=== PATIENT | female | born 1950 | race Caucasian/White ===

== ENCOUNTER 2017-11-25 06:50 | Emergency (ER) | payer OTHER, BC ==
[2017-11-25 07:01] VITALS: BP 148/92; PULSE 81; TEMP 99.2; BMI 27.1
--- NOTE | 2017-11-25 07:23 | PDOC ---
History of Present Illness - General Chief Complaint: Bite Stated Complaint: FEVER Time Seen by Provider: 11/25/17 07:09 History Source: Patient Exam Limitations: No Limitations - History of Present Illness Initial Comments: 11/25/17 07:16 67y F hx of htn presents with complaint of fevers. Pt notes that [place]. [place] and was bit by a flying insect, there was a rash at the area on her R chest right afterwards that was a little itchy but then resolved. She also endorsed some body aches the first day but that has since resolved. The pt denies any associated n/v/d, dysuria, cough, sore throat, sneezing, cp, abd pain , back pain, other rashes, known sick contacts. Pt notes that she has been having low grade fevers to 101, 100.8 and has been taking tylenol around the clock. Pt states she went to urgent care who referred her to the ED for evauation. Past History - Past Medical History Allergies/Adverse Reactions: Allergies Allergy/AdvReac Type Severity Reaction Status Date / Time BACITRACIN OPTH Allergy Uncoded 11/25/17 06:52 Home Medications: Ambulatory Orders Amlodipine Besylate/Benazepril [Lotrel 5-10 mg Capsule] 1 each PO DAILY Spironolactone [Aldactone -] 25 mg PO DAILY 05/08/13 Metoprolol Tartrate 25 mg PO DAILY 11/25/17 Anemia: No Asthma: No Cancer: No Cardiac Disorders: No CVA: No COPD: No CHF: No Dementia: No Diabetes: No GI Disorders: No Disorders: No HTN: Yes Hypercholesterolemia: No Liver Disease: No Seizures: No Thyroid Disease: No - Surgical History Appendectomy: Yes - Immunization History Immunization Up to Date: No - Suicide/Smoking/Psychosocial Hx Smoking History: Never smoked Have you smoked in the past 12 months: No Information on smoking cessation initiated: No Hx Alcohol Use: No Drug/Substance Use Hx: No Substance Use Type: None Review of Systems - Review of Systems Able to Perform ROS?: Yes Comments:: 11/25/17 07:19 Constitutional - +Fever, body aches no reported Chills, HEENT: no reported vision changes, sore throat Respiratory: no reported cough, sob, hemoptysis Cardiac: no reported chest pain, palpitations, light headedness, leg swelling Abd/GI: no reported abd pain, nausea, vomiting, blood per rectum, melena, diarrhea : no reported dysuria, frequency, discharge Musculskelatal - no reported back pain, joint swelling skin - no reported bruising, erythema, rash neurological: no reported headache, numbness, focal weakness, tingling, ataxia, hematologic: no reported easy bruising, easy bleeding *Physical Exam - Vital Signs Last Vital Signs Temp Pulse Resp BP Pulse Ox 99.2 F 81 16 148/92 99 11/25/17 06:57 11/25/17 06:57 11/25/17 06:57 11/25/17 06:57 11/25/17 06:57 - Physical Exam Comments: 11/25/17 07:23 GENERAL: The patient is awake, alert, and fully oriented, Nontoxic - in no acute distress. HEAD: Normocephalic, atraumatic. EYES: extraocular movements intact, sclera anicteric, conjunctiva clear. ENT: Normal voice, Moist mucous membranes. NECK: Normal range of motion, supple LUNGS: Breath sounds equal, clear to auscultation bilaterally. No wheezes, no rhonchi, no rales. HEART: Regular rate and rhythm, normal S1 and S2 without murmur, rub or gallop. ABDOMEN: Soft, nontender, normoactive bowel sounds. No guarding, no rebound. . No CVA tenderness EXTREMITIES: Normal range of motion, no edema. No clubbing or cyanosis. No cords, erythema, or tenderness. NEUROLOGICAL: No facial assymetry, Normal speech, PSYCH: Normal mood, normal affect. SKIN: Warm, Dry, normal turgor, no rashes noted ED Treatment Course - LABORATORY CBC & Chemistry Diagram: 11/25/17 08:22 11/25/17 08:22 Medical Decision Making - Medical Decision Making 11/25/17 07:23 67y F hx of htn presents with complaint of fever x 4 days after suspected insect bite without any other associated symptoms. on exam pt is well appearing with an essentially normal will start off with a UA, if that is negative will procede with lab work 11/25/17 08:56 UA neg for UTI labs otained including blood smear. pt requesting to leave prior to lab results (cmp sitll pending) mild leukocytosis noted on CBC will have tp fu with dr. Villagomez regarding cultrures/smear/cmp results. pt states she understands the risk of leaving prior to having all of her results back return precautions were discussed I discussed the physical exam findings, ancillary test results and final diagnoses with the patient. I answered all of the patient's questions. The patient was satisfied with the care received and felt comfortable with the discharge plan and treatment plan. The patient will call their primary care physician within 24 hours to arrange follow-up and will return to the Emergency Department with any new, persistent or worsening symptoms. *DC/Admit/Observation/Transfer Diagnosis at time of Disposition: Fever Qualifiers: Fever type: unspecified Qualified Code(s): R50.9 - Fever, unspecified - Discharge Dispostion Disposition: HOME Condition at time of disposition: Improved Decision to Admit order: No - Referrals Referrals: Flaco Villagomez MD [Staff Physician] - - Patient Instructions Printed Discharge Instructions: DI for Insect Bites and Stings Additional Instructions: Return to the emergency department immediately with ANY new, persistent or worsening symptoms including any chest pain, shortness of breath,a bdominal pain , back pain, headache, or any other concerns.. Take tylenol as needed for fever. You MUST call and follow up with your doctor tomorrow for further evaluation of your symptoms. Results were discussed with you. Please make sure your doctor reviews the results of your emergency evaluation. You requested to leave prior to your blood test results and they are still pending, please have Dr. Villagomez follow up with the results tomorrow. Print Language: SAO TOMEAN - Post Discharge Activity
[2017-11-25 07:50] LABS: URINE APPEARANCE Clear; URINE BILIRUBIN Negative (NEGATIVE); URINE GLUCOSE (UA) Negative (NEGATIVE); URINE KETONE Negative (NEGATIVE); URINE LEUK ESTERASE Negative (NEGATIVE); URINE NITRITE Negative (NEGATIVE); URINE UROBILINOGEN 0.2 (0.2-1.0)
[2017-11-25 07:54] LABS: URINE BLOOD 2+ (NEGATIVE); URINE COLOR YELLOW; URINE PROTEIN 1+ (NEGATIVE)
[2017-11-25 08:26] LABS: EPI CELLS RARE /HPF; URINE WBC 0-2 (0-5)
[2017-11-25 08:52] LABS: HEMATOCRIT 37.3 % (32.4-45.2); HEMOGLOBIN 12.7 GM/dl (10.7-15.3); MCHC 34.1 g/dl (32.0-36.0); MEAN PLT VOLUME 9.1 fl (7.5-11.1); PLATELET COUNT 222 K/MM3 (134-434); RBC 4.39 M/mm3 (3.60-5.2); RDW 13.4 % (11.6-15.6); WHITE BLOOD COUNT 11.4 K/mm3 (4.0-10.8)
[2017-11-25 09:00] LABS: ALBUMIN 3.3 g/dl (3.5-5.0); ALK PHOS 68 U/L (32-92); ANION GAP 7 (8-16); BILIRUBIN,TOTAL 0.5 mg/dl (0.2-1.0); BLOOD UREA NITROGEN 11 mg/dl (7-18); CALCIUM 8.2 mg/dl (8.4-10.2); CHLORIDE 106 mmol/L (98-107); CO2 23 mmol/L (22-28); CREATININE 0.9 mg/dl (0.6-1.3); GLUCOSE,RANDOM 135 mg/dl (74-106); POTASSIUM 3.4 mmol/L (3.5-5.1); SGOT/AST 28 U/L (10-42); SGPT/ALT 26 U/L (10-40); SODIUM 136 mmol/L (136-145); TOT PROT 6.3 g/dl (6.4-8.3)
== END 2017-11-25 09:03 | disposition home or self-care (01) ==
LOC: FER 06:50
DX: R50.9 Fever, unspecified (principal); I10 Essential (primary) hypertension
CPT/HCPCS: 36415; 80053; 81003; 81015; 85027; 87040; 87086; 87207; 99281-25

== ENCOUNTER 2018-07-24 19:23 | Emergency (ER) | payer OTHER, BC ==
--- NOTE | 2018-07-24 19:31 | PDOC ---
History of Present Illness - History of Present Illness Initial Comments: The patient is a 68 year old female, with a significant PMH of HTN and osteoporosis, who presents to the emergency department today complaining of RUQ pain for 3 weeks. Patient notes that the pain is localized to the RUQ, and intermittently causes mid-back discomfort. She reports that the RUQ pain is exacerbated with deep breaths, sitting down, bending over, and turning side to side, and is alleviated with lying flat. Patient notes taking Motrin and Tylenol without relief for the pain. She states she feels bloated from her stomach up to her throat. Patient notes she tried taking Tums and Pepto Bismol without relief, but Nexium provided her with minimal relief. She reports associated abnormal bowel movements, where her stool is dark black in color. Patient did note that todays bowel was not as dark as it typically has been, but was still abnormal to her baseline. She reports that her last meal was less than an hour ago, and RUQ pain is unaffected by PO intake. Patient was seen by Dr. Villagomez today, who referred her to the ED for a concern of a GI bleed. The patient denies chest pain, shortness of breath, headache and dizziness. Denies fever, chills, nausea, vomit, diarrhea and constipation. Denies dysuria, frequency, urgency and hematuria. Allergies: Bacitracin Past surgical history: None reported Social history: Denies EtOH, tobacco, or recreational drug use. PCP: Dr. Flaco Villagomez 07/24/18 20:40 <Alia Rapp - Last Filed: 07/24/18 22:10> <Amalia Guallpa - Last Filed: 07/25/18 04:21> - General Chief Complaint: Pain, Acute Stated Complaint: RUQ ABD PAIN/GIB Time Seen by Provider: 07/24/18 19:27 Past History <Alia Rapp - Last Filed: 07/24/18 22:10> - Past Medical History Anemia: No Asthma: No Cancer: No Cardiac Disorders: No CVA: No COPD: No CHF: No Dementia: No Diabetes: No GI Disorders: No Disorders: No HTN: Yes Hypercholesterolemia: No Liver Disease: No Seizures: No Thyroid Disease: No - Surgical History Appendectomy: Yes - Immunization History Immunization Up to Date: No - Suicide/Smoking/Psychosocial Hx Smoking History: Never smoked Have you smoked in the past 12 months: No Hx Alcohol Use: No Drug/Substance Use Hx: No Substance Use Type: None <Amalia Guallpa - Last Filed: 07/25/18 04:21> - Past Medical History Allergies/Adverse Reactions: Allergies Allergy/AdvReac Type Severity Reaction Status Date / Time BACITRACIN OPTH Allergy Uncoded 11/25/17 06:52 Home Medications: Ambulatory Orders Amlodipine Besylate/Benazepril [Lotrel 5-10 mg Capsule] 1 each PO DAILY Spironolactone [Aldactone -] 25 mg PO DAILY 05/08/13 Review of Systems - Review of Systems Comments:: GENERAL/CONSTITUTIONAL: No fever or chills. No weakness. HEAD, EYES, EARS, NOSE AND THROAT: +Throat bloating. No change in vision. No ear pain or discharge. No sore throat. CARDIOVASCULAR: No chest pain or shortness of breath. RESPIRATORY: No cough, wheezing, or hemoptysis. GASTROINTESTINAL: +Abnormal black stool. No nausea, vomiting, diarrhea or constipation. GENITOURINARY: No dysuria, frequency, or change in urination. ABDOMINAL: +RUQ pain. +Epigastric bloating. MUSCULOSKELETAL: +Intermittent mid-back discomfort. No joint or muscle swelling or pain. No neck pain. SKIN: No rash NEUROLOGIC: No headache, vertigo, loss of consciousness, or change in strength/ sensation. ENDOCRINE: No increased thirst. No abnormal weight change. HEMATOLOGIC/LYMPHATIC: No anemia, easy bleeding, or history of blood clots. ALLERGIC/IMMUNOLOGIC: No hives or skin allergy. 07/24/18 20:41 <Alia Rapp - Last Filed: 07/24/18 22:10> *Physical Exam - Vital Signs Last Vital Signs Temp Pulse Resp BP Pulse Ox 97.9 F 76 18 133/76 97 07/24/18 19:27 07/24/18 19:27 07/24/18 19:27 07/24/18 19:27 07/24/18 19:27 - Physical Exam Comments: GENERAL: The patient is awake, alert, and fully oriented, in no acute distress. HEAD: Normal with no signs of trauma. EYES: Pupils equal, round and reactive to light, extraocular movements intact, sclera anicteric, conjunctiva clear with no pallor. ENT: Ears normal, nares patent, oropharynx clear without exudates. Moist mucous membranes. NECK: Normal range of motion, supple without lymphadenopathy, JVD, or masses. LUNGS: Breath sounds equal, clear to auscultation bilaterally. No wheeze/ crackles. HEART: Regular rate and rhythm, normal S1 and S2 without murmur or rub. ABDOMEN: +Moderate tenderness to palpation of the RUQ. +Positive Vines. Soft/ nondistended. BS wnl. No guarding or rebound. No palpable masses. No hepatosplenomegaly. EXTREMITIES: Normal range of motion, no edema. No clubbing or cyanosis. No cords, erythema, or tenderness. NEUROLOGICAL: Cranial nerves II through XII grossly intact. Normal speech, normal gait. PSYCH: Normal mood, normal affect. SKIN: Warm, Dry, normal turgor, no rashes or lesions noted. 07/24/18 20:59 <Alia Rapp - Last Filed: 07/24/18 22:10> Moderate Sedation - Procedure Monitoring Vital Signs: Procedure Monitoring Vital Signs Temperature 97.9 F 07/24/18 19:27 Pulse Rate 76 07/24/18 19:27 Respiratory Rate 18 07/24/18 19:27 Blood Pressure 133/76 07/24/18 19:27 O2 Sat by Pulse Oximetry (%) 97 07/24/18 19:27 <Alia Rapp - Last Filed: 07/24/18 22:10> ED Treatment Course - LABORATORY CBC & Chemistry Diagram: 07/24/18 20:00 07/24/18 20:00 - ADDITIONAL ORDERS Additional order review: Laboratory Results 07/24/18 07/24/18 07/24/18 20:00 20:00 20:00 PT with INR 12.0 INR 1.07 Sodium 135 L Potassium 3.9 Chloride 106 Carbon Dioxide 25 Anion Gap 4 L BUN 21 H Creatinine 1.0 Creat Clearance w eGFR 55.30 Random Glucose 104 Calcium 9.1 Total Bilirubin 0.5 AST 23 ALT 18 Alkaline Phosphatase 76 Total Protein 6.7 Albumin 3.5 Urine Color Yellow Urine Appearance Clear Urine pH 5.5 Ur Specific [place] 1.010 Urine Protein Negative Urine Glucose (UA) Negative Urine Ketones Negative Urine Blood Negative Urine Nitrite Negative Urine Bilirubin Negative Urine Urobilinogen 0.2 Ur Leukocyte Esterase 2+ H 07/24/18 20:00 RBC 3.56 L MCV 87.9 MCHC 33.7 RDW 13.5 MPV 9.3 Neutrophils % 53.3 Lymphocytes % 38.0 Monocytes % 6.2 Eosinophils % 1.9 Basophils % 0.6 - RADIOLOGY Radiograph Interpretation: EXAM#: TYPE/EXAM: RESULT: [id number] CT/ABDOMEN PELVIS CT WITH CONTR Abdomen and pelvis CT (with intravenous contrast) Clinical information: right upper quadrant pain. IMPRESSION: No definite CT findings of acute pathology are identified. Mild to moderate gastric distention is seen secondary to accumulated food and fluid - ? recent meal ingestion (versus possible gastroparesis or gastric outlet obstruction). Follow-up evaluation as clinically indicated. Moderate to marked gallbladder contraction is noted which may be physiologic in nature versus secondary to chronic cholecystitis. No obvious radiopaque gallbladder calculi are visualized. If clinically indicated two-week follow-up sonography may be performed with optimal preparative fasting. Colonic fecal retention is noted which is probably at least moderate. A small to moderate umbilical hernia is seen containing fat only. L5-S1 grade 1 spondylolytic spondylolisthesis. Reported By: Victor M Berger MD 07/24/18 21:49 07/24/18 22:10 <Alia Rapp - Last Filed: 07/24/18 22:10> - LABORATORY CBC & Chemistry Diagram: 07/24/18 20:00 07/24/18 20:00 <Amalia Guallpa - Last Filed: 07/25/18 04:21> Progress Note - Progress Note Progress Note: Documentation has been prepared under my direction and personally reviewed by me in its entirety. I attest that this documented accurately reflects all work, treatment, procedures and medical decision making performed by me. 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 Patient was seen by in the office today and ultrasound performed there is essentially normal (according to Dr. Villagomez). Hemoglobin performed at that time was 10.5 grams/dl. She presents to ER with mild right upper quadrant pain which is position dependent but not related to meals. She does not have shortness of breath/chest pain/lightheadedness. Exam as noted. She is neither tachycardic nor hypotensive. Laboratory evaluation includes CBC (hemoglobin is unchanged from earlier at 10.5 with hematocrit at 31.5); INR is normal. BUN slightly elevated at 21 with normal creatinine . Lipase is slightly elevated at 434 Stool heme test is trace positive Abdominal/pelvic CT with IV contrast performed as noted above. No significant abnormality seen. Results discussed with the patient. She is accompanied in the ER by her son and [id number] (both of whom are physicians). The patient is comfortable without increase in pain and without development of associated symptoms. Since her hemoglobin/hematocrit is stable from earlier today and there is no evidence on the CT of significant abnormality, the patient strongly wishes to be discharged for follow-up with Dr. Villagomez and with her brim flexer, Dr. Maldonado. Since she is clinically stable and is highly reliable for follow-up, she will be discharged with advice to follow-up with Dr. Villagomez and Dr. Maldonado as soon as possible. If she has any worsening of pain, increase in bleeding or lightheadedness/shortness of breath/chest pain, she should return to the emergency room immediately <Amalia Guallpa - Last Filed: 07/25/18 04:21> *DC/Admit/Observation/Transfer - Attestations Scribe Attestion: Documentation prepared by GEOVANNA Alcantara, acting as clinical medical transcriptionist for Amalia Guallpa MD. 07/24/18 20:41 <Alia Rapp - Last Filed: 07/24/18 22:10> <Amalia Guallpa - Last Filed: 07/25/18 04:21> Diagnosis at time of Disposition: History of GI bleed, Right upper quadrant abdominal pain - Discharge Dispostion Disposition: HOME Condition at time of disposition: Stable - Referrals Referrals: Flaco Villagomez MD [Primary Care Provider] - Cristian Maldonado MD [Non Staff, Medical] - - Patient Instructions Printed Discharge Instructions: Gastrointestinal Bleeding Additional Instructions: Light diet as tolerated Avoid aspirin and nonsteroidal antiinflammatory medications Tylenol as needed for pain continue Nexium as previously Followup with Dr Maldonado and Dr Villagomez as discussed Return to ER immediately if you have severe pain/vomiting/bloody stools/ weakness/lightheadedness - Post Discharge Activity
[2018-07-24 19:59] VITALS: BP 133/76; PULSE 76; TEMP 97.9; BMI 27.0
[2018-07-24 20:12] LABS: BASO % 0.6 % (0-2.0); EOS % 1.9 % (0-4.5); HEMATOCRIT 31.3 % (32.4-45.2); HEMOGLOBIN 10.5 GM/dl (10.7-15.3); MCH 29.6 pg (25.7-33.7); MCHC 33.7 g/dl (32.0-36.0); MEAN CELL VOLUME 87.9 fl (80-96); MEAN PLT VOLUME 9.3 fl (7.5-11.1); MONO % 6.2 % (3.8-10.2); NEUT % 53.3 % (42.8-82.8); PLATELET COUNT 296 K/MM3 (134-434); RBC 3.56 M/mm3 (3.60-5.2); RDW 13.5 % (11.6-15.6); WHITE BLOOD COUNT 12.5 K/mm3 (4.0-10.8)
[2018-07-24 20:16] LABS: PH,URINE 5.5 (4.5-8); URINE APPEARANCE Clear; URINE BILIRUBIN Negative (NEGATIVE); URINE COLOR Yellow; URINE GLUCOSE (UA) Negative (NEGATIVE); URINE KETONE Negative (NEGATIVE); URINE LEUK ESTERASE 2+ (NEGATIVE); URINE NITRITE Negative (NEGATIVE); URINE PROTEIN Negative (NEGATIVE); URINE UROBILINOGEN 0.2 (0.2-1.0)
[2018-07-24 20:19] LABS: INR 1.07 (0.82-1.09)
[2018-07-24 20:22] LABS: ALBUMIN 3.5 g/dl (3.4-5.0); ALK PHOS 76 U/L (45-117); ANION GAP 4 MMOL/L (8-16); BILIRUBIN,TOTAL 0.5 mg/dl (0.2-1); BLOOD UREA NITROGEN 21 mg/dl (7-18); CALCIUM 9.1 mg/dl (8.5-10); CHLORIDE 106 mmol/L (98-107); CO2 25 mmol/L (21-32); GLUCOSE,RANDOM 104 mg/dl (74-106); POTASSIUM 3.9 mmol/L (3.5-5.1); SGOT/AST 23 U/L (15-37); SGPT/ALT 18 U/L (13-61); SODIUM 135 mmol/L (136-145); TOT PROT 6.7 g/dl (6.4-8.2)
[2018-07-24 20:46] LABS: URINE BACTERIA 1+ /hpf (NEGATIVE); URINE RBC 0-2 /hpf (0-3); URINE WBC 0-1 (0-5)
== END 2018-07-24 23:39 | disposition home or self-care (01) ==
LOC: FER 19:23
DX: R10.11 Right upper quadrant pain (principal)
CPT/HCPCS: 36415; 74177-TC; 80048; 80053; 80061; 80074; 80076; 81003; 81015; 82150; 82272; 82550; 82553; 83036; 83690; 84443; 85025; 85027; 85610; 86850; 86900; 86901; 87086; 99283-25